=== PATIENT | female | born 1965 | race Caucasian/White ===

== ENCOUNTER → 2016-07-05 17:20 | Outpatient (CLI) | payer BC ==
[2011-02-06 06:32] VITALS: BMI 23.0
== END | disposition home or self-care (01) ==
LOC: D.MAMMO 15:30
DX: Z12.31 Encounter for screening mammogram for malignant neoplasm of breast (principal)

== ENCOUNTER → 2016-08-28 16:58 | Outpatient (CLI) | payer BC ==
[2011-02-06 06:32] VITALS: BMI 23.0
== END | disposition home or self-care (01) ==
LOC: D.MAMMO 08:30
DX: R92.8 Other abnormal and inconclusive findings on diagnostic imaging of breast (principal)

== ENCOUNTER → 2018-06-19 19:36 | Outpatient (CLI) | payer BC ==
[2011-02-06 06:32] VITALS: BMI 23.0
== END | disposition home or self-care (01) ==
LOC: D.MAMMO 04-02 15:45
PROVIDERS: ATTEND Family Medicine
DX: Z12.31 Encounter for screening mammogram for malignant neoplasm of breast (principal)

== ENCOUNTER 2018-08-06 19:00 | Outpatient (CLI) | payer BC ==
[2011-02-06 06:32] VITALS: BMI 23.0
== END 2018-08-06 23:59 | disposition home or self-care (01) ==
LOC: D.MAMMO 19:00
PROVIDERS: ATTEND Family Medicine
DX: R92.8 Other abnormal and inconclusive findings on diagnostic imaging of breast (principal)

== ENCOUNTER 2019-02-24 13:00 | Outpatient (CLI) | payer BC ==
[2011-02-06 06:32] VITALS: BMI 23.0
== END 2019-02-24 13:30 | disposition home or self-care (01) ==
LOC: D.MAMMO 13:00
PROVIDERS: ATTEND Family Medicine
DX: R92.8 Other abnormal and inconclusive findings on diagnostic imaging of breast (principal)